=== PATIENT | female | born 1995 | race Asian ===

== ENCOUNTER 2021-03-10 23:49 | Outpatient (CLI) | payer OTHER | END 2021-03-10 23:50 | disposition critical access hospital (66) | LOC: EMS 23:49 | DX: R10.9 Unspecified abdominal pain (principal); R11.2 Nausea with vomiting, unspecified; R19.7 Diarrhea, unspecified; R42 Dizziness and giddiness; R03.1 Nonspecific low blood-pressure reading | CPT/HCPCS: A0425; A0427 ==

== ENCOUNTER 2021-03-11 00:06 | Emergency (ER) | payer OTHER ==
[2021-03-11 01:08] LABS: BASOPHILS # (AUTO) 0.1 10^3/uL (0.0-0.1); BASOPHILS % (AUTO) 0.6 %; EOSINOPHILS # (AUTO) 0.2 10^3/uL (0.0-0.7); EOSINOPHILS % (AUTO) 1.7 %; HCT - HEMATOCRIT 39.4 % (37.0-47.0); HGB - HEMOGLOBIN 12.7 g/dL (12.0-16.0); LYMPHOCYTES # (AUTO) 1.4 10^3/uL (1.5-3.5); LYMPHOCYTES % (AUTO) 11.6 %; MEAN CORPUSCULAR HEMOGLOBIN 29.3 pg (27.0-31.0); MEAN CORPUSCULAR HGB CONC 32.2 g/dL (32.0-36.0); MEAN CORPUSCULAR VOLUME 90.8 fL (81.0-99.0); MONOCYTES # (AUTO) 0.7 10^3/uL (0.0-1.0); MONOCYTES % (AUTO) 6.1 %; NEUTROPHILS # (AUTO) 9.2 10^3/uL (1.5-6.6); NEUTROPHILS % (AUTO) 79.5 %; PLT - PLATELET COUNT 263 10^3/uL (130-450); RED BLOOD COUNT 4.34 10^6/uL (4.20-5.40); RED CELL DISTRIBUTION WIDTH 13.1 % (12.0-15.0); WHITE BLOOD COUNT 11.6 x10^3/uL (4.8-10.8)
--- NOTE | 2021-03-11 01:09 | ED Physician Documentation ---
PD HPI ABD PAIN - Stated complaint Stated Complaint: ABD PX, N/V - Chief complaint Chief Complaint: Abd Pain - History obtained from History obtained from: Patient - History of Present Illness Timing - onset: Enter time (23:00) Timing - details: Gradual onset Pain level now: 6 Quality: Pain Location: All over / everywhere Radiation: Other (does not radiate) Improved by: Laying still Worsened by: Palpation Associated symptoms: Nausea, Vomiting, Diarrhea. No: Fever Similar symptoms before: Has not had sx before Recently seen: Not recently seen - Additional information Additional information: c/o diffuse abdominal pain, predominantly left lower quadrant and midline lower abdomen. rapid onset 11 PM tonight while at home at rest. Pain is associated with nausea, vomiting, and diarrhea. Denies h/o similar symptoms. Review of Systems Constitutional: denies: Fever Cardiac: reports: Reviewed and negative Respiratory: reports: Reviewed and negative GI: reports: Abdominal Pain, Nausea, Vomiting, Diarrhea. 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 : None HEENT: None Psych: Anxiety Musculoskeletal: None Derm: None - Present Medications Home Medications: Ambulatory Orders Medication Instructions Recorded Confirmed Oxycodone HCl/Acetaminophen 1 - 2 each PO Q6H PRN #14 tablet 03/11/21 [Percocet 5-325 mg Tablet] - Allergies Allergies/Adverse Reactions: Allergies Allergy/AdvReac Type Severity Reaction Status Date / Time No Known Drug Allergies Allergy Verified 03/11/21 00:12 - Social History Does the pt smoke?: No Smoking Status: Never smoker Does the pt drink ETOH?: No Does the pt have substance abuse?: No - Immunizations Immunizations are current?: Yes - POLST Patient has POLST: No PD ED PE NORMAL - Vitals Vital signs reviewed: Yes - General General: Alert and oriented X 3, Well developed/nourished, Other (appears uncomfortable, mild-moderate painful distress) - HEENT HEENT: Moist mucous membranes - Cardiac Cardiac: RRR, No murmur - Respiratory Respiratory: No respiratory distress, Clear bilaterally - Abdomen Abdomen: Soft, Non distended, Other (diffuse TTP, predominantly LLQ and suprapubic. no rebound, no guarding) - Back Back: No CVA TTP Results - Vitals Vitals: Vital Signs - 24 hr 03/11/21 03/11/21 03/11/21 02:18 03:26 03:36 Heart Rate 68 80 Respiratory 16 17 17 Rate Blood Pressure 98/56 L O2 Saturation 100 98 03/11/21 03/11/21 04:12 04:48 Heart Rate 65 Respiratory 15 16 Rate Blood Pressure 102/67 O2 Saturation 97 Oxygen O2 Source Room air - Labs Labs: Laboratory Tests 03/11/21 03/11/21 03/11/21 01:00 01:00 01:21 WBC 11.6 H RBC 4.34 Hgb 12.7 Hct 39.4 MCV 90.8 MCH 29.3 MCHC 32.2 RDW 13.1 Plt Count 263 MPV 9.0 Neut # (Auto) 9.2 H Lymph # (Auto) 1.4 L [place] # (Auto) 0.7 Eos # (Auto) 0.2 Baso # (Auto) 0.1 Absolute Nucleated RBC 0.00 Nucleated RBC % 0.0 Sodium 135 Potassium 3.7 Chloride 102 Carbon Dioxide 25 Anion Gap 8.0 BUN 17 Creatinine 1.0 Estimated GFR (MDRD) 68 L Glucose 115 H Calcium 8.3 L Total Bilirubin 0.9 AST 17 ALT 13 Alkaline Phosphatase 48 Total Protein 7.4 Albumin 4.1 Globulin 3.3 Albumin/Globulin Ratio 1.2 Lipase 27 Urine Color YELLOW Urine Clarity CLEAR Urine pH 6.0 Ur Specific Joshua 1.025 Urine Protein TRACE Urine Glucose (UA) NEGATIVE Urine Ketones 15 H Urine Occult Blood NEGATIVE Urine Nitrite NEGATIVE Urine Bilirubin NEGATIVE Urine Urobilinogen 1 (NORMAL) Ur Leukocyte Esterase TRACE H Urine RBC 0-5 Urine WBC 4-5 Ur Squamous Epith Cells MANY Squamous H Urine Bacteria Rare Urine Mucus Moderate Strands Ur Microscopic Review INDICATED Urine Culture Comments NOT INDICATED Urine HCG, Qual 03/11/21 01:21 WBC RBC Hgb Hct MCV MCH MCHC RDW Plt Count MPV Neut # (Auto) Lymph # (Auto) [place] # (Auto) Eos # (Auto) Baso # (Auto) Absolute Nucleated RBC Nucleated RBC % Sodium Potassium Chloride Carbon Dioxide Anion Gap BUN Creatinine Estimated GFR (MDRD) Glucose Calcium Total Bilirubin AST ALT Alkaline Phosphatase Total Protein Albumin Globulin Albumin/Globulin Ratio Lipase Urine Color Urine Clarity Urine pH Ur Specific Joshua Urine Protein Urine Glucose (UA) Urine Ketones Urine Occult Blood Urine Nitrite Urine Bilirubin Urine Urobilinogen Ur Leukocyte Esterase Urine RBC Urine WBC Ur Squamous Epith Cells Urine Bacteria Urine Mucus Ur Microscopic Review Urine Culture Comments Urine HCG, Qual NEGATIVE - Rads (name of study) CT A/P IV contrast Radiology: Prelim report reviewed, See rad report pelvic/TV US Radiology: Prelim report reviewed, See rad report PD MEDICAL DECISION MAKING - ED course Complexity details: reviewed results, re-evaluated patient, considered differential, d/w patient ED course: patient reports significant improvement after 1mg dilaudid IV. She is given 1 liter NS and 4mg IV zofran as well, with resolution of her n/v. she declined further analgesia for remainder of ED stay. No findings on CT A/P nor pelvic/TV US to correlate with symptoms. Incidental note made of small right ovarian cyst. results reviewed with patient, indications for need to return to ED discussed, and she is instructed to follow up with her primary care provider, next available appointment Departure - Departure Disposition: 01 Home, Self Care Clinical Impression: Ovarian cyst Qualifiers: Laterality: right Qualified Code(s): N83.201 - Unspecified ovarian cyst, right side Abdominal pain Qualifiers: Abdominal location: lower abdomen, unspecified Qualified Code(s): R10.30 - Lower abdominal pain, unspecified Condition: Good Instructions: ED Abdominal Pain Unkn Cause, ED Cyst Ovarian, ED Pelvic Pain [facility] Follow-Up: VERA FLORES MD [Primary Care Provider] - Prescriptions: Oxycodone HCl/Acetaminophen [Percocet 5-325 mg Tablet] 1 - 2 each PO Q6H PRN #14 tablet PRN Reason: pain Discharge Date/Time: 03/11/21 04:49
[2021-03-11 01:20] LABS: ALBUMIN 4.1 g/dL (3.2-5.5); ALBUMIN/GLOBULIN RATIO 1.2 (1.0-2.2); BILIRUBIN,TOTAL 0.9 mg/dL (0.2-1.0); CALCIUM 8.3 mg/dL (8.5-10.3); POTASSIUM 3.7 mmol/L (3.5-5.0); TOTAL PROTEIN 7.4 g/dL (6.7-8.2)
[2021-03-11 01:26] LABS: GLUCOSE, URINE (UA) NEGATIVE (NEGATIVE); KETONES,URINE (UA) 15 mg/dL (NEGATIVE); LEUKOCYTE ESTERASE, URINE TRACE (NEGATIVE); NITRITE,URINE NEGATIVE (NEGATIVE); OCCULT BLOOD,URINE NEGATIVE (NEGATIVE); PROTEIN,URINE TRACE mg/dL (NEGATIVE); UROBILINOGEN,URINE 1 (NORMAL) E.U./dL (NORMAL)
[2021-03-11] MEDS ORDERED: SODIUM CHLORIDE 0.9% 1,000 ML IV STA (01:28)
[2021-03-11] MEDS ORDERED: ONDANSETRON 4 MG/2 ML VIAL IVP STA (01:28)
[2021-03-11] MEDS ORDERED: HYDROmorphone 1 MG/ML CARPUJECT IVP STA (01:28)
[2021-03-11 01:32] LABS: BILIRUBIN,URINE NEGATIVE (NEGATIVE); CLARITY,URINE CLEAR (CLEAR); ICTOTEST,URINE NEGATIVE
[2021-03-11 01:35] LABS: BACTERIA,URINE Rare /HPF (None Seen); MUCUS,URINE Moderate Strands; RBC,URINE 0-5 /HPF (0-5); SQUAMOUS EPITHELIAL CELL,UR MANY Squamous (<= Few)
[2021-03-11] MEDS ORDERED: IOVERSOL 320 100 ML VIAL IVP ONE ×2 (01:35→02:22)
[2021-03-11 01:49] LABS: HCG UR QUAL NEGATIVE
[2021-03-11 04:14] VITALS: BP 102/67
--- NOTE | 2021-03-11 10:44 | Ultrasound Report ---
PROCEDURE: Pelvic w/Transvag+Doppler Comp INDICATIONS: pelvic pain, R TECHNIQUE: Real-time scanning was performed of the pelvic organs, with image documentation. Additional endovagi nal scanning was necessary due to incomplete visualization of the adnexal and endometrial structures by transabdominal scanning. COMPARISON: None. FINDINGS: No pathologic free abdominal or pelvic fluid. Uterus: Uterus is normal in size at 2.4 x 4.2 x 3.4 cm. The endometrium measures 5.1 mm in combined thickness. Intrauterine device is present and in appropriate position. Ovaries: Right ovary measures 3.2 x 2.4 x 1.8 cm, volume 7.3 cc. Complex focus of echogenicity is pr esent within the right ovary measuring 1.7 x 1.2 x 1.4 cm. The left ovary measures 2.4 x 1.6 x 1.5 cm , by 3.0 cc. There is a focus of decreased echogenicity within the left ovary measuring 1.4 x 1.5 x 1 .6 cm. Arterial and venous flow are identified within the ovaries bilaterally. IMPRESSION: 1. No evidence of torsion at time of exam. 2. Partially collapsed right hemorrhagic cyst. 3. Simple left ovarian cyst. The above findings are concordant with preliminary report. Reviewed by: Alexa Samson MD on 03/11/2021 10:43 AM PDT Approved by: Alexa Samson MD on 03/11/2021 10:43 AM PDT Station ID: [id number]
--- NOTE | 2021-03-11 11:01 | CT Report ---
PROCEDURE: Abdomen/Pelvis W INDICATIONS: Lower quadrant abdominal pain. CONTRAST: IV CONTRAST: Isovue 370 ml: 100 PO CONTRAST: *NO PO CONTRAST TECHNIQUE: After the administration of intravenous contrast, 5 mm thick sections acquired from the diaphragms to the symphysis. 5 mm thick coronal and sagittal reformats were acquired. For radiation dose reducti on, the following was used: automated exposure control, adjustment of mA and/or kV according to jemal ent size. COMPARISON: None. FINDINGS: Image quality: Excellent. ABDOMEN: Lung bases: Lung bases are clear. Heart size is normal. Solid organs: Liver and spleen are normal in size and enhancement. Gallbladder is normal. Biliary system is non dilated. Pancreas enhances normally. No adrenal nodules. Kidneys demonstrate normal size and enhancement, without hydronephrosis. Peritoneum and bowel: Stomach is distended and fluid with food debris. Appendix is normal. Bowel loo ps demonstrate normal wall thickness and caliber. Scattered colonic diverticula in transverse colon. No CT findings to suggest acute diverticulitis. No free fluid or air. Nodes and vessels: No retroperitoneal or mesenteric adenopathy by size criteria. Aorta and inferior vena cava are normal in size. Miscellaneous: No ventral hernias. PELVIS: Genitourinary: Bladder wall thickness is normal. Uterus is normal. There is an IUD. A 1.7 cm corpus sclerosis is seen in the right ovary. Ovaries are otherwise normal. No free fluid in the cul-de-sac. Miscellaneous: No inguinal hernias or adenopathy. Bones: No suspicious bony lesions. No vertebral body compression fractures. IMPRESSION: 1. No acute abnormalities identified in abdomen or pelvis. 2. A 1.7 cm corpus with cyst in the right ovary. 3. Mild diverticulosis without diverticulitis. No significant discrepancy with the preliminary interpretation. Reviewed by: Cate Lawrence MD on 03/11/2021 11:00 AM PDT Approved by: Cate Lawrence MD on 03/11/2021 11:00 AM PDT Station ID: [id number]
== END 2021-03-11 04:49 | disposition home or self-care (01) ==
LOC: ED 00:06
DX: R10.30 Lower abdominal pain, unspecified (principal); N83.201 Unspecified ovarian cyst, right side; N83.292 Other ovarian cyst, left side
CPT/HCPCS: 36415; 74177; 76830; 76856; 80053; 81001; 81025; 83690; 85025; 93975; 96374; 96375; 99284; J1170; Q9967; 81003; 87086

== ENCOUNTER 2021-09-14 16:56 | Inpatient (IN) | payer OTHER ==
[2021-09-14] MEDS ORDERED: SODIUM CHLORIDE 0.9% 1,000 ML IV STA (17:23)
--- NOTE | 2021-09-14 17:34 | ED Physician Documentation ---
History of Present Illness - Stated complaint Stated Complaint: COVID SYMPTOMS - Chief complaint Chief Complaint: Resp - Additonal information Additional information: 25-year-old female who is approximately 26 weeks with an JACKSON of December 24 presents to the emergency department for evaluation of acute onset cough, cold, congestion, fevers and mild dyspnea. Symptoms began this a.m. She reports herself being fully vaccinated for COVID-19 in December 2020. This is her first . She is attended by Dr. Stone through [facility]. Patient denies dysuria vaginal bleeding or discharge. She does endorse bilateral lower pelvic pain for much of the last week. She continues to have movement. She denies any pertinent past medical history preceding this. No tobacco or drug use. Denies any recent sick contacts or travel. She presents appearing as though she feels unwell. Significant tachycardia heart rate 130-140. Sinus. 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 : None HEENT: None Psych: Anxiety Musculoskeletal: None Derm: None - Present Medications Home Medications: Ambulatory Orders Medication Instructions Recorded Confirmed Oxycodone HCl/Acetaminophen 1 - 2 each PO Q6H PRN #14 tablet 03/11/21 [Percocet 5-325 mg Tablet] - Allergies Allergies/Adverse Reactions: Allergies Allergy/AdvReac Type Severity Reaction Status Date / Time No Known Drug Allergies Allergy Verified 09/14/21 17:21 - Social History Does the pt smoke?: No Smoking Status: Never smoker Does the pt drink ETOH?: No Does the pt have substance abuse?: No - Immunizations Immunizations are current?: Yes - POLST Patient has POLST: No PD ED PE EXPANDED - General General: Alert, No acute distress, Other (appears as though she feel sunwell) - Cardiac Cardiac: Regular Rate, Tachy, Radial strong equal, Pedal strong equal, Cap refill < 2 sec. No: Murmur Present - Respiratory Respiratory: Clear to ausultation hawa. No: Distress, Labored - Abdomen Abdomen: Normal Bowel sounds, Tender to palpation (mild lower pelvic TTP) - Back Back: Normal exam - Derm Derm: Normal color, Warm and dry. No: Rash - Extremities Extremities: Normal. No: Deformity, Tenderness - Neuro Neuro: Alert and Oriented X 3, CNII-XII intact - GCS Eye Opening: Spontaneous Motor: Obeys Commands Verbal: Oriented Total: 15 Results - Vitals Vitals: Vital Signs - 24 hr 09/14/21 09/14/21 17:15 19:08 Temperature 39.0 C H Heart Rate 135 H 119 H Respiratory 24 21 Rate Blood Pressure 117/59 L 119/80 O2 Saturation 98 97 Oxygen O2 Source Room air - Labs Labs: Laboratory Tests 09/14/21 09/14/21 09/14/21 17:30 17:37 17:37 WBC 13.6 H RBC 3.79 L Hgb 11.8 L Hct 34.3 L MCV 90.5 MCH 31.1 H MCHC 34.4 RDW 14.0 Plt Count 233 MPV 9.1 Neut # (Auto) 12.1 H Lymph # (Auto) 0.5 L [place] # (Auto) 0.8 Eos # (Auto) 0.1 Baso # (Auto) 0.0 Absolute Nucleated RBC 0.00 Nucleated RBC % 0.0 Sodium 130 L Potassium 3.1 L Chloride 97 L Carbon Dioxide 21 Anion Gap 12.0 BUN 6 Creatinine 0.8 Estimated GFR (MDRD) 88 L Glucose 92 Calcium 8.8 Total Bilirubin 0.6 AST 19 ALT 16 Alkaline Phosphatase 85 Total Protein 7.9 Albumin 3.5 Globulin 4.4 H Albumin/Globulin Ratio 0.8 L Lipase 23 Nasal Adenovirus (PCR) NOT DETECTED Nasal B. parapertussis DNA (PCR) NOT DETECTED Nasal Coronavir 229E PCR NOT DETECTED Nasal Coronavir HKU1 PCR NOT DETECTED Nasal Coronavir NL63 PCR NOT DETECTED Nasal Coronavir OC43 PCR NOT DETECTED Nasal Enterovir/Rhinovir PCR NOT DETECTED Nasal Influenza B PCR NOT DETECTED Nasal Influenza A PCR NOT DETECTED Nasal Parainfluen 1 PCR NOT DETECTED Nasal Parainfluen 2 PCR NOT DETECTED Nasal Parainfluen 3 PCR NOT DETECTED Nasal Parainfluen 4 PCR NOT DETECTED Nasal RSV (PCR) NOT DETECTED Nasal B.pertussis DNA PCR NOT DETECTED Nasal C.pneumoniae (PCR) NOT DETECTED [place]venido Human Metapneumo PCR NOT DETECTED Nasal M.pneumoniae (PCR) NOT DETECTED Nasal SARS-CoV-2 (PCR) NOT DETECTED - Rads (name of study) CXR Radiology: Final report received (Right basilar opacification which could represent atelectasis or pneumonia.) PD MEDICAL DECISION MAKING - ED course Complexity details: reviewed results, re-evaluated patient, d/w patient, d/w project management consultant (Dr. Burrows) ED course: 25-year-old female who is approximately 26 weeks with an JACKSON of December 22 presents the emergency department with acute onset cough cold congestion body aches and malaise. She is vaccinated for COVID-19. She does present as febrile with a heart rate in the 130s. Initially her Oxygen saturations were in the high 90s and she was not tachypneic but over time here in the emergency department she developed a mild tachypnea with respiratory rate in the 40s and a decrease in her sats to 90 to 92%. She was placed on 2 L nasal cannula. Subsequent chest x-ray has revealed likely an early pneumonia in the right lower lobe of the lung. Patient was started on ceftriaxone and azithromycin. Patient has been receiving NST testing here in the emergency department. Unfo rtunately the baby has had some tachycardia with heart rates in the 170s and 180s. This was discussed with our OB on-call Dr. Burrows. Given mild stress patient will be admitted to the hospital for further evaluation and treatment of her pneumonia. Reassuringly her respiratory PCR panel is negative. Pt's primary OB is Dr. Stone with [facility]. I did speak on the phone with With her colleague on-call Dr. Lakhani. He was notified that we would be admitting her to the hospital for further evaluation and management of her pneumonia as well as an abnormal stress test. Further care to be dictated by the OB team here at [facility] with Dr. Burrows as the admitting physician Departure - Departure Disposition: 66 [facility] DC/Xfer Clinical Impression: Pneumonia affecting Qualifiers: Trimester: second trimester Qualified Code(s): O99.512 - Diseases of the respiratory system complicating , second trimester
[2021-09-14 17:44] LABS: BASOPHILS % (AUTO) 0.2 %; EOSINOPHILS # (AUTO) 0.1 10^3/uL (0.0-0.7); EOSINOPHILS % (AUTO) 0.4 %; HCT - HEMATOCRIT 34.3 % (37.0-47.0); HGB - HEMOGLOBIN 11.8 g/dL (12.0-16.0); LYMPHOCYTES # (AUTO) 0.5 10^3/uL (1.5-3.5); LYMPHOCYTES % (AUTO) 3.8 %; MEAN CORPUSCULAR HEMOGLOBIN 31.1 pg (27.0-31.0); MEAN CORPUSCULAR HGB CONC 34.4 g/dL (32.0-36.0); MEAN CORPUSCULAR VOLUME 90.5 fL (81.0-99.0); MEAN PLATELET VOLUME 9.1 fL (7.9-10.8); MONOCYTES # (AUTO) 0.8 10^3/uL (0.0-1.0); MONOCYTES % (AUTO) 6.2 %; NEUTROPHILS # (AUTO) 12.1 10^3/uL (1.5-6.6); NEUTROPHILS % (AUTO) 88.7 %; PLT - PLATELET COUNT 233 10^3/uL (130-450); RED BLOOD COUNT 3.79 10^6/uL (4.20-5.40); WHITE BLOOD COUNT 13.6 x10^3/uL (4.8-10.8)
[2021-09-14 17:56] LABS: ALBUMIN 3.5 g/dL (3.2-5.5); ALBUMIN/GLOBULIN RATIO 0.8 (1.0-2.2); BILIRUBIN,TOTAL 0.6 mg/dL (0.2-1.0); CALCIUM 8.8 mg/dL (8.5-10.3); CREATININE 0.8 mg/dL (0.4-1.0); POTASSIUM 3.1 mmol/L (3.5-5.0); TOTAL PROTEIN 7.9 g/dL (6.7-8.2)
--- NOTE | 2021-09-14 18:12 | XRAY Report ---
PROCEDURE: Chest 1 View X-Ray INDICATIONS: covid symptoms TECHNIQUE: One view of the chest was acquired. COMPARISON: 01/10/2020. FINDINGS: Surgical changes and devices: None. Lungs and pleura: No pleural effusions or pneumothorax. Increased desiccation noted in the right uriah g base. Mediastinum: Mediastinal contours appear normal. Heart size is normal. Bones and chest wall: Convex right thoracic spine scoliosis. No suspicious bony lesions. Overlying soft tissues appear unremarkable. IMPRESSION: Right basilar opacification which could represent atelectasis or pneumonia. Reviewed by: Inocencia Cevallos MD, PhD on 09/14/2021 6:11 PM PST Approved by: Inocencia Cevallos MD, PhD on 09/14/2021 6:11 PM PST Station ID: [id number]
[2021-09-14] MEDS ORDERED: ACETAMINOPHEN 325 MG TABLET PO STA (18:21)
[2021-09-14 18:36] LABS: B. PARAPERTUSSIS- RESP PCR PAN NOT DETECTED; B. PERTUSSIS- RESP PCR PANEL NOT DETECTED; C. PNEUMONIAE- RESP PCR PANEL NOT DETECTED; CORONAVIRUS 229E-RESP PCR NOT DETECTED; CORONAVIRUS HKU1-RESP PCR NOT DETECTED; CORONAVIRUS NL63-RESP PCR NOT DETECTED; CORONAVIRUS OC43-RESP PCR NOT DETECTED; HUMAN METAPNEUMOVIRUS NOT DETECTED; INFLUENZA A- RESP PCR PANEL NOT DETECTED; INFLUENZA B - RESP PCR PANEL NOT DETECTED; M. PNEUMONIAE- RESP PCR PANEL NOT DETECTED; PARAINFLUENZA VIRUS 1 NOT DETECTED; PARAINFLUENZA VIRUS 2 NOT DETECTED; PARAINFLUENZA VIRUS 3 NOT DETECTED; PARAINFLUENZA VIRUS 4 NOT DETECTED; RHINOVIRUS/ENTEROVIRUS NOT DETECTED; RSV- RESP PCR PANEL NOT DETECTED; SARS-CoV-2 -RESP PCR PANEL NOT DETECTED
--- NOTE | 2021-09-14 18:40 | PROVIDER PROGRESS NOTE ---
- HPI Chief Complaint: Other (Fever, Cough, Body Aches) Current : Vital Signs Temperature 102.2 F H 09/14/21 17:15 Heart Rate 135 H 09/14/21 17:15 Respiratory Rate 24 09/14/21 17:15 Blood Pressure 117/59 L 09/14/21 17:15 O2 Saturation 98 09/14/21 17:15 Patient is a 25-year-old G1 at 26 weeks gestation presenting for body aches, cough, and fever. She is seen by Dr. Stone in [place]. She said yesterday she began slightly unwell with mild body aches but did not very well. This morning she awoke felt worse and gradually progressed to fever, body aches, cough, and some shortness of breath. There is no one else sick at home. She has not found relief from this. She has good movement, no leaking, no vaginal bleeding. She denies headache, right upper quadrant pain, changes in vision. Past medical history Denies pertinent history Past surgical history No prior surgery Family history Father: Hypertension Social history Denies tobacco, alcohol, drugs Medications: Sertraline daily - Exam Physical Constitutional: alert, well hydrated, well developed, well nourished, appropriate dress. Skin: normal turgor, normal color. Head: atraumatic, normocephalic. Cardiovascular: RRR, no murmurs nor gallops. Respiratory: no respiratory distress. Clear to auscultation bilaterally. Cough intermittently. No increased work of breathing. Abdomen: Mild diffuse tenderness to soft palpation. No suprapubic tenderness. Back: No CVA tenderness. Some mild palpation to light pressure in paraspinal muscles. Spine: normal mobility. Neurologic: normal, sensation intact, motor intact. Psych: affect and mood appropriate, normal interaction, good eye contact. Laboratory Last Values WBC 13.6 x10^3/uL (4.8-10.8) H 09/14/21 17:37 RBC 3.79 10^6/uL (4.20-5.40) L 09/14/21 17:37 Hgb 11.8 g/dL (12.0-16.0) L 09/14/21 17:37 Hct 34.3 % (37.0-47.0) L 09/14/21 17:37 MCV 90.5 fL (81.0-99.0) 09/14/21 17:37 MCH 31.1 pg (27.0-31.0) H 09/14/21 17:37 MCHC 34.4 g/dL (32.0-36.0) 09/14/21 17:37 RDW 14.0 % (12.0-15.0) 09/14/21 17:37 Plt Count 233 10^3/uL (130-450) 09/14/21 17:37 MPV 9.1 fL (7.9-10.8) 09/14/21 17:37 Neut # (Auto) 12.1 10^3/uL (1.5-6.6) H 09/14/21 17:37 Lymph # (Auto) 0.5 10^3/uL (1.5-3.5) L 09/14/21 17:37 [place] # (Auto) 0.8 10^3/uL (0.0-1.0) 09/14/21 17:37 Eos # (Auto) 0.1 10^3/uL (0.0-0.7) 09/14/21 17:37 Baso # (Auto) 0.0 10^3/uL (0.0-0.1) 09/14/21 17:37 Absolute Nucleated RBC 0.00 x10^3/uL 09/14/21 17:37 Nucleated RBC % 0.0 /100WBC 09/14/21 17:37 Sodium 130 mmol/L (135-145) L 09/14/21 17:37 Potassium 3.1 mmol/L (3.5-5.0) L 09/14/21 17:37 Chloride 97 mmol/L (101-111) L 09/14/21 17:37 Carbon Dioxide 21 mmol/L (21-32) 09/14/21 17:37 Anion Gap 12.0 (6-13) 09/14/21 17:37 BUN 6 mg/dL (6-20) 09/14/21 17:37 Creatinine 0.8 mg/dL (0.4-1.0) 09/14/21 17:37 Estimated GFR (MDRD) 88 (>89) L 09/14/21 17:37 Glucose 92 mg/dL (70-100) 09/14/21 17:37 Calcium 8.8 mg/dL (8.5-10.3) 09/14/21 17:37 Total Bilirubin 0.6 mg/dL (0.2-1.0) 09/14/21 17:37 AST 19 IU/L (10-42) 09/14/21 17:37 ALT 16 IU/L (10-60) 09/14/21 17:37 Alkaline Phosphatase 85 IU/L (42-121) 09/14/21 17:37 Total Protein 7.9 g/dL (6.7-8.2) 09/14/21 17:37 Albumin 3.5 g/dL (3.2-5.5) 09/14/21 17:37 Globulin 4.4 g/dL (2.1-4.2) H 09/14/21 17:37 Albumin/Globulin Ratio 0.8 (1.0-2.2) L 09/14/21 17:37 Lipase 23 U/L (22-51) 09/14/21 17:37 Chest x-ray: Impression: Right basilar opacification which could represent atelectasis or pneumonia - Procedures OB Procedure Performed: NST Diagnosis/Indication for NST: Other (Fever) - Plan Plan: Assessment and plan: 25-year-old G1, P0 at 26 weeks gestation with viral URI 1. Viral URI -Vaccinated against COVID-19 -Symptomatic treatment at this time. No hypoxia despite being on room air. Continue oral hydration and Tylenol p.o. for fever control. Should return if unable to keep fever controlled. -She appears to have an infection, although has not ill enough to warrant admission. 2. Round ligament pain -Patient description of bilateral inguinal pain and given the , this will coincides with my movement pain. She is additionally having some body myalgias which are likely exacerbating the problem. 3. 26 weeks gestation -Reactive NST, mild tachycardia, resolved with resolution of fever. -Follow-up with Dr. Stone for care
[2021-09-14] MEDS ORDERED: cefTRIAXone 1 GM VIAL IVP STA (20:20)
[2021-09-14] MEDS ORDERED: AZITHROMYCIN INJ 500 MG in SODIUM CHLORIDE 0.9% 250 ML IV STA (20:20)
--- NOTE | 2021-09-14 20:26 | HISTORY & PHYSICAL EXAMINATION ---
Admit History - Visit Reason Visit Reason: Other (Pneumonia) - : 1 Parity: 0 Care: positive: Other ([facility]) Risk/History: positive: None Complications This : positive: None Smoking Status: Never smoker - Other Maternal History Other Maternal History: Patient is a 25-year-old G1 at 26 weeks gestation presenting for body aches, cough, and fever. She receives care from Dr. Stone in [place]. She said yesterday she began to feel slightly unwell with mild body aches. This morning she when she awoke, she felt worse and gradually progressed to fever, body aches, cough, and some shortness of breath. There is no one else sick at home. She has not found relief from this. She has had bilateral low abdominal pin in the injuinal distrobution that seems worse than her other aches. She has good movement, no leaking, no vaginal bleeding. She denies headache, right upper quadrant pain, changes in vision. Past medical history Denies pertinent history Past surgical history No prior surgery Family history Father: Hypertension Social history Denies tobacco, alcohol, drugs Medications: Sertraline daily - Exam Physical Constitutional: alert, well hydrated, well developed, well nourished, appropriate dress. Skin: normal turgor, normal color. Head: atraumatic, normocephalic. Cardiovascular: RRR, no murmurs nor gallops. Respiratory: no respiratory distress. Clear to auscultation bilaterally. Cough intermittently. No increased work of breathing. Abdomen: Mild diffuse tenderness to soft palpation. No suprapubic tenderness. Back: No CVA tenderness. Some mild palpation to light pressure in paraspinal muscles. Spine: normal mobility. Neurologic: normal, sensation intact, motor intact. Psych: affect and mood appropriate, normal interaction, good eye contact. Laboratory Last Values WBC 13.6 x10^3/uL (4.8-10.8) H 09/14/21 17:37 RBC 3.79 10^6/uL (4.20-5.40) L 09/14/21 17:37 Hgb 11.8 g/dL (12.0-16.0) L 09/14/21 17:37 Hct 34.3 % (37.0-47.0) L 09/14/21 17:37 MCV 90.5 fL (81.0-99.0) 09/14/21 17:37 MCH 31.1 pg (27.0-31.0) H 09/14/21 17:37 MCHC 34.4 g/dL (32.0-36.0) 09/14/21 17:37 RDW 14.0 % (12.0-15.0) 09/14/21 17:37 Plt Count 233 10^3/uL (130-450) 09/14/21 17:37 MPV 9.1 fL (7.9-10.8) 09/14/21 17:37 Neut # (Auto) 12.1 10^3/uL (1.5-6.6) H 09/14/21 17:37 Lymph # (Auto) 0.5 10^3/uL (1.5-3.5) L 09/14/21 17:37 [place] # (Auto) 0.8 10^3/uL (0.0-1.0) 09/14/21 17:37 Eos # (Auto) 0.1 10^3/uL (0.0-0.7) 09/14/21 17:37 Baso # (Auto) 0.0 10^3/uL (0.0-0.1) 09/14/21 17:37 Absolute Nucleated RBC 0.00 x10^3/uL 09/14/21 17:37 Nucleated RBC % 0.0 /100WBC 09/14/21 17:37 Sodium 130 mmol/L (135-145) L 09/14/21 17:37 Potassium 3.1 mmol/L (3.5-5.0) L 09/14/21 17:37 Chloride 97 mmol/L (101-111) L 09/14/21 17:37 Carbon Dioxide 21 mmol/L (21-32) 09/14/21 17:37 Anion Gap 12.0 (6-13) 09/14/21 17:37 BUN 6 mg/dL (6-20) 09/14/21 17:37 Creatinine 0.8 mg/dL (0.4-1.0) 09/14/21 17:37 Estimated GFR (MDRD) 88 (>89) L 09/14/21 17:37 Glucose 92 mg/dL (70-100) 09/14/21 17:37 Calcium 8.8 mg/dL (8.5-10.3) 09/14/21 17:37 Total Bilirubin 0.6 mg/dL (0.2-1.0) 09/14/21 17:37 AST 19 IU/L (10-42) 09/14/21 17:37 ALT 16 IU/L (10-60) 09/14/21 17:37 Alkaline Phosphatase 85 IU/L (42-121) 09/14/21 17:37 Total Protein 7.9 g/dL (6.7-8.2) 09/14/21 17:37 Albumin 3.5 g/dL (3.2-5.5) 09/14/21 17:37 Globulin 4.4 g/dL (2.1-4.2) H 09/14/21 17:37 Albumin/Globulin Ratio 0.8 (1.0-2.2) L 09/14/21 17:37 Lipase 23 U/L (22-51) 09/14/21 17:37 Chest x-ray: Impression: Right basilar opacification which could represent atelectasis or pneumonia - Procedures OB Procedure Performed: NST Diagnosis/Indication for NST: Other (Fever) - Plan Plan: Assessment and plan: 25-year-old G1, P0 at 26 weeks gestation with viral URI 1. Right lower lobe pneumonia -Vaccinated against COVID-19, Viral respiratory panel negative. -Initially did well but became hypoxic and now on 2 liters oxygen. Continue oral hydration and Tylenol p.o. for fever control. Received one liter bolus in ED. -Oxygen saturation goal of 95% or greater. -Ceftriaxone and azithromycin for pneumonia with plan to switch to augmentin when suitible for outpatient management. 2. Round ligament pain -Patient description of bilateral inguinal pain and given the , this will coincides with my movement pain. She is additionally having some body myalgias which are likely exacerbating the problem. 3. 26 weeks gestation -Reactive NST, mild tachycardia, resolving with resolution of fever. Anticipate less than 2 midnights admission. Meds/Allgy - Home Medications Home Medications: Ambulatory Orders Medication Instructions Recorded Confirmed Oxycodone HCl/Acetaminophen 1 - 2 each PO Q6H PRN #14 tablet 03/11/21 [Percocet 5-325 mg Tablet] - Allergies Allergies/Adverse Reactions: Allergies Allergy/AdvReac Type Severity Reaction Status Date / Time No Known Drug Allergies Allergy Verified 09/14/21 17:21 Physical - Abdominal Exam Vital Signs: Temp Pulse Resp BP Pulse Ox 102.2 F H 119 H 21 119/80 97 09/14/21 17:15 09/14/21 19:08 09/14/21 19:08 09/14/21 19:08 09/14/21 19:08
[2021-09-14] MEDS ORDERED: LACTATED RINGERS 1,000 ML IV STA (20:30)
[2021-09-14] MEDS ORDERED: POTASSIUM CHLORIDE 20 MEQ TABLET PO STA (20:31)
[2021-09-14] MEDS ORDERED: LACTATED RINGERS 500 ML IV SCH (21:00)
[2021-09-14] MEDS ORDERED: ONDANSETRON 4 MG/2 ML VIAL IVP PRN (21:26)
[2021-09-14] MEDS ORDERED: CALCIUM CARBONATE CHEW 500 MG TABLET PO PRN (21:28)
[2021-09-14] MEDS ORDERED: SODIUM CHLORIDE FLUSH 0.9% 10 ML SYRINGE IVP SCH (22:00)
[2021-09-14 23:04] LABS: BILIRUBIN,URINE NEGATIVE (NEGATIVE); GLUCOSE, URINE (UA) NEGATIVE (NEGATIVE); KETONES,URINE (UA) 40 mg/dL (NEGATIVE); LEUKOCYTE ESTERASE, URINE MODERATE (NEGATIVE); NITRITE,URINE NEGATIVE (NEGATIVE); OCCULT BLOOD,URINE NEGATIVE (NEGATIVE); PH,URINE 6.5 PH (5.0-7.5); PROTEIN,URINE NEGATIVE (NEGATIVE); UROBILINOGEN,URINE 0.2 (NORMAL) E.U./dL (NORMAL)
[2021-09-14 23:18] LABS: BACTERIA,URINE Moderate /HPF (None Seen); CLARITY,URINE HAZY (CLEAR); RBC,URINE 0-5 /HPF (0-5); SQUAMOUS EPITHELIAL CELL,UR MOD Squamous (<= Few)
[2021-09-15] MEDS: ACETAMINOPHEN 325 MG TABLET PO PRN ×4 (06:59→19:15)
[2021-09-15 07:45] LABS: BASOPHILS # (AUTO) 0.1 10^3/uL (0.0-0.1); BASOPHILS % (AUTO) 0.4 %; EOSINOPHILS # (AUTO) 0.1 10^3/uL (0.0-0.7); EOSINOPHILS % (AUTO) 0.4 %; HCT - HEMATOCRIT 29.2 % (37.0-47.0); HGB - HEMOGLOBIN 9.8 g/dL (12.0-16.0); LYMPHOCYTES # (AUTO) 0.8 10^3/uL (1.5-3.5); LYMPHOCYTES % (AUTO) 6.6 %; MEAN CORPUSCULAR HEMOGLOBIN 30.3 pg (27.0-31.0); MEAN CORPUSCULAR HGB CONC 33.6 g/dL (32.0-36.0); MEAN CORPUSCULAR VOLUME 90.4 fL (81.0-99.0); MEAN PLATELET VOLUME 9.3 fL (7.9-10.8); MONOCYTES # (AUTO) 1.1 10^3/uL (0.0-1.0); MONOCYTES % (AUTO) 9.1 %; NEUTROPHILS % (AUTO) 82.7 %; PLT - PLATELET COUNT 206 10^3/uL (130-450); RED BLOOD COUNT 3.23 10^6/uL (4.20-5.40); RED CELL DISTRIBUTION WIDTH 14.3 % (12.0-15.0)
[2021-09-15] MEDS ORDERED: cefTRIAXone 1 GM in SODIUM CHLORIDE 0.9% MINIBAG 100 ML IV SCH (09:00)
[2021-09-15] MEDS ORDERED: AZITHROMYCIN INJ 500 MG in SODIUM CHLORIDE 0.9% 250 ML IV SCH (09:00)
--- NOTE | 2021-09-15 11:24 | PROVIDER PROGRESS NOTE ---
Subjective - Prog Note Date Prog Note Date: 09/15/21 Prog Note Time: 11:00 - Subjective Pt reports feeling: Improved Subjective: Patient is feeling better today. Oxygen helped overnight. Still feeling myalgias, although lessened. No subjective fever or chills. Exam: Constitutional: alert, no acute distress, well hydrated, well developed, well nourished, appropriate dress. Skin: normal turgor, normal color. Head: atraumatic, normocephalic. Cardiovascular: RRR. Respiratory: no respiratory distress, decreased lung sounds in bilateral lower lobes. 1 L O2. Abdomen: nondistended,mild tenderness, although less than yesterday. Spine: normal mobility. Neurologic: normal, sensation intact, motor intact. Psych: affect and mood appropriate, normal interaction, good eye contact. NST: 150 beats per baseline, moderate variability, accelerations present, no decelerations. [place]: Quiescent Laboratory Last Values Laboratory Last Values WBC 12.0 x10^3/uL (4.8-10.8) H 09/15/21 07:20 RBC 3.23 10^6/uL (4.20-5.40) L 09/15/21 07:20 Hgb 9.8 g/dL (12.0-16.0) L 09/15/21 07:20 Hct 29.2 % (37.0-47.0) L 09/15/21 07:20 MCV 90.4 fL (81.0-99.0) 09/15/21 07:20 MCH 30.3 pg (27.0-31.0) 09/15/21 07:20 MCHC 33.6 g/dL (32.0-36.0) 09/15/21 07:20 RDW 14.3 % (12.0-15.0) 09/15/21 07:20 Plt Count 206 10^3/uL (130-450) 09/15/21 07:20 MPV 9.3 fL (7.9-10.8) 09/15/21 07:20 Neut # (Auto) 10.0 10^3/uL (1.5-6.6) H 09/15/21 07:20 Lymph # (Auto) 0.8 10^3/uL (1.5-3.5) L 09/15/21 07:20 [place] # (Auto) 1.1 10^3/uL (0.0-1.0) H 09/15/21 07:20 Eos # (Auto) 0.1 10^3/uL (0.0-0.7) 09/15/21 07:20 Baso # (Auto) 0.1 10^3/uL (0.0-0.1) 09/15/21 07:20 Absolute Nucleated RBC 0.00 x10^3/uL 09/15/21 07:20 Nucleated RBC % 0.0 /100WBC 09/15/21 07:20 Sodium 130 mmol/L (135-145) L 09/14/21 17:37 Potassium 3.1 mmol/L (3.5-5.0) L 09/14/21 17:37 Chloride 97 mmol/L (101-111) L 09/14/21 17:37 Carbon Dioxide 21 mmol/L (21-32) 09/14/21 17:37 Anion Gap 12.0 (6-13) 09/14/21 17:37 BUN 6 mg/dL (6-20) 09/14/21 17:37 Creatinine 0.8 mg/dL (0.4-1.0) 09/14/21 17:37 Estimated GFR (MDRD) 88 (>89) L 09/14/21 17:37 Glucose 92 mg/dL (70-100) 09/14/21 17:37 Calcium 8.8 mg/dL (8.5-10.3) 09/14/21 17:37 Total Bilirubin 0.6 mg/dL (0.2-1.0) 09/14/21 17:37 AST 19 IU/L (10-42) 09/14/21 17:37 ALT 16 IU/L (10-60) 09/14/21 17:37 Alkaline Phosphatase 85 IU/L (42-121) 09/14/21 17:37 Total Protein 7.9 g/dL (6.7-8.2) 09/14/21 17:37 Albumin 3.5 g/dL (3.2-5.5) 09/14/21 17:37 Globulin 4.4 g/dL (2.1-4.2) H 09/14/21 17:37 Albumin/Globulin Ratio 0.8 (1.0-2.2) L 09/14/21 17:37 Lipase 23 U/L (22-51) 09/14/21 17:37 Urine Color YELLOW 09/14/21 21:00 Urine Clarity HAZY (CLEAR) 09/14/21 21:00 Urine pH 6.5 PH (5.0-7.5) 09/14/21 21:00 Ur Specific [place] 1.010 (1.002-1.030) 09/14/21 21:00 Urine Protein NEGATIVE mg/dL (NEGATIVE) 09/14/21 21:00 Urine Glucose (UA) NEGATIVE mg/dL (NEGATIVE) 09/14/21 21:00 Urine Ketones 40 mg/dL (NEGATIVE) H 09/14/21 21:00 Urine Occult Blood NEGATIVE (NEGATIVE) 09/14/21 21:00 Urine Nitrite NEGATIVE (NEGATIVE) 09/14/21 21:00 Urine Bilirubin NEGATIVE (NEGATIVE) 09/14/21 21:00 Urine Urobilinogen 0.2 (NORMAL) E.U./dL (NORMAL) 09/14/21 21:00 Ur Leukocyte Esterase MODERATE (NEGATIVE) H 09/14/21 21:00 Urine RBC 0-5 /HPF (0-5) 09/14/21 21:00 Urine WBC 6-10 /HPF (0-5) H 09/14/21 21:00 Ur Squamous Epith Cells MOD Squamous (<= Few) H 09/14/21 21:00 Urine Bacteria Moderate /HPF (None Seen) H 09/14/21 21:00 Nasal Adenovirus (PCR) NOT DETECTED 09/14/21 17:30 Nasal B. parapertussis DNA (PCR) NOT DETECTED 09/14/21 17:30 Nasal Coronavir 229E PCR NOT DETECTED 09/14/21 17:30 Nasal Coronavir HKU1 PCR NOT DETECTED 09/14/21 17:30 Nasal Coronavir NL63 PCR NOT DETECTED 09/14/21 17:30 Nasal Coronavir OC43 PCR NOT DETECTED 09/14/21 17:30 Nasal Enterovir/Rhinovir PCR NOT DETECTED 09/14/21 17:30 Nasal Influenza B PCR NOT DETECTED 09/14/21 17:30 Nasal Influenza A PCR NOT DETECTED 09/14/21 17:30 Nasal Parainfluen 1 PCR NOT DETECTED 09/14/21 17:30 Nasal Parainfluen 2 PCR NOT DETECTED 09/14/21 17:30 Nasal Parainfluen 3 PCR NOT DETECTED 09/14/21 17:30 Nasal Parainfluen 4 PCR NOT DETECTED 09/14/21 17:30 Nasal RSV (PCR) NOT DETECTED 09/14/21 17:30 Nasal B.pertussis DNA PCR NOT DETECTED 09/14/21 17:30 Nasal C.pneumoniae (PCR) NOT DETECTED 09/14/21 17:30 [place] Human Metapneumo PCR NOT DETECTED 09/14/21 17:30 Nasal M.pneumoniae (PCR) NOT DETECTED 09/14/21 17:30 Nasal SARS-CoV-2 (PCR) NOT DETECTED 09/14/21 17:30 Assessment and Plan: 25-year-old G1 at 26 weeks gesatation with right lower lobe pneumonia 1. Right lower lobe pneumonia - Continue daily ceftriaxone and azythromycin -No fevers since last night -Maintain oxygen saturations to greater than 95%, social walking. Will try to wean off 1 L today. -Plan to switch to oral antibiotics if patient continues to improve, weaned off oxygen, and remains afebrile. -Encouraged Incentive spirometer use 2. 26 weeks gestation -NST every shift. Will increase to continuous if patient becomes febrile. Objective - Vital Signs/Intake & Output Vital Signs: Vital Signs x48h Temp Pulse Resp BP Pulse Ox 09/15/21 09:26 87 22 97/55 L 100 09/15/21 07:46 98.8 F 100 24 89/50 L 100 09/15/21 07:12 100.0 F 106 H 24 95/56 L 100 09/15/21 04:49 99.0 F 09/15/21 04:00 98.6 F 100 30 H 106/63 100 Intake & Output: Intake & Output 09/12/21 09/13/21 09/14/21 09/15/21 23:59 23:59 23:59 23:59 Intake Total 1000 1100 Balance 1000 1100 - Lab Results Fish Bones: 09/15/21 07:20 09/14/21 17:37 Other Labs: Lab Results x24hrs 09/15/21 09/14/21 09/14/21 Range/Units 07:20 21:00 17:37 WBC 12.0 H (4.8-10.8) x10^3/uL RBC 3.23 L (4.20-5.40) 10^6/uL Hgb 9.8 L (12.0-16.0) g/dL Hct 29.2 L (37.0-47.0) % MCV 90.4 (81.0-99.0) fL MCH 30.3 (27.0-31.0) pg MCHC 33.6 (32.0-36.0) g/dL RDW 14.3 (12.0-15.0) % Plt Count 206 (130-450) 10^3/uL MPV 9.3 (7.9-10.8) fL Neut # (Auto) 10.0 H (1.5-6.6) 10^3/uL Lymph # (Auto) 0.8 L (1.5-3.5) 10^3/uL [place] # (Auto) 1.1 H (0.0-1.0) 10^3/uL Eos # (Auto) 0.1 (0.0-0.7) 10^3/uL Baso # (Auto) 0.1 (0.0-0.1) 10^3/uL Absolute Nucleated RBC 0.00 x10^3/uL Nucleated RBC % 0.0 /100WBC Sodium 130 L (135-145) mmol/L Potassium 3.1 L (3.5-5.0) mmol/L Chloride 97 L (101-111) mmol/L Carbon Dioxide 21 (21-32) mmol/L Anion Gap 12.0 (6-13) BUN 6 (6-20) mg/dL Creatinine 0.8 (0.4-1.0) mg/dL Estimated GFR (MDRD) 88 L (>89) Glucose 92 (70-100) mg/dL Calcium 8.8 (8.5-10.3) mg/dL Total Bilirubin 0.6 (0.2-1.0) mg/dL AST 19 (10-42) IU/L ALT 16 (10-60) IU/L Alkaline Phosphatase 85 (42-121) IU/L Total Protein 7.9 (6.7-8.2) g/dL Albumin 3.5 (3.2-5.5) g/dL Globulin 4.4 H (2.1-4.2) g/dL Albumin/Globulin Ratio 0.8 L (1.0-2.2) Lipase 23 (22-51) U/L Urine Color YELLOW Urine Clarity HAZY (CLEAR) Urine pH 6.5 (5.0-7.5) PH Ur Specific [place] 1.010 (1.002-1.030) Urine Protein NEGATIVE (NEGATIVE) mg/dL Urine Glucose (UA) NEGATIVE (NEGATIVE) mg/dL Urine Ketones 40 H (NEGATIVE) mg/dL Urine Occult Blood NEGATIVE (NEGATIVE) Urine Nitrite NEGATIVE (NEGATIVE) Urine Bilirubin NEGATIVE (NEGATIVE) Urine Urobilinogen 0.2 (NORMAL) (NORMAL) E.U./dL Ur Leukocyte Esterase MODERATE H (NEGATIVE) Urine RBC 0-5 (0-5) /HPF Urine WBC 6-10 H (0-5) /HPF Ur Squamous Epith Cells MOD Squamous H (<= Few) Urine Bacteria Moderate H (None Seen) /HPF Nasal Adenovirus (PCR) Nasal B. parapertussis DNA (PCR) Nasal Coronavir 229E PCR Nasal Coronavir HKU1 PCR Nasal Coronavir NL63 PCR Nasal Coronavir OC43 PCR Nasal Enterovir/Rhinovir PCR Nasal Influenza B PCR Nasal Influenza A PCR Nasal Parainfluen 1 PCR Nasal Parainfluen 2 PCR Nasal Parainfluen 3 PCR Nasal Parainfluen 4 PCR Nasal RSV (PCR) Nasal B.pertussis DNA PCR Nasal C.pneumoniae (PCR) [place] Human Metapneumo PCR Nasal M.pneumoniae (PCR) Nasal SARS-CoV-2 (PCR) 09/14/21 09/14/21 Range/Units 17:37 17:30 WBC 13.6 H (4.8-10.8) x10^3/uL RBC 3.79 L (4.20-5.40) 10^6/uL Hgb 11.8 L (12.0-16.0) g/dL Hct 34.3 L (37.0-47.0) % MCV 90.5 (81.0-99.0) fL MCH 31.1 H (27.0-31.0) pg MCHC 34.4 (32.0-36.0) g/dL RDW 14.0 (12.0-15.0) % Plt Count 233 (130-450) 10^3/uL MPV 9.1 (7.9-10.8) fL Neut # (Auto) 12.1 H (1.5-6.6) 10^3/uL Lymph # (Auto) 0.5 L (1.5-3.5) 10^3/uL [place] # (Auto) 0.8 (0.0-1.0) 10^3/uL Eos # (Auto) 0.1 (0.0-0.7) 10^3/uL Baso # (Auto) 0.0 (0.0-0.1) 10^3/uL Absolute Nucleated RBC 0.00 x10^3/uL Nucleated RBC % 0.0 /100WBC Sodium (135-145) mmol/L Potassium (3.5-5.0) mmol/L Chloride (101-111) mmol/L Carbon Dioxide (21-32) mmol/L Anion Gap (6-13) BUN (6-20) mg/dL Creatinine (0.4-1.0) mg/dL Estimated GFR (MDRD) (>89) Glucose (70-100) mg/dL Calcium (8.5-10.3) mg/dL Total Bilirubin (0.2-1.0) mg/dL AST (10-42) IU/L ALT (10-60) IU/L Alkaline Phosphatase (42-121) IU/L Total Protein (6.7-8.2) g/dL Albumin (3.2-5.5) g/dL Globulin (2.1-4.2) g/dL Albumin/Globulin Ratio (1.0-2.2) Lipase (22-51) U/L Urine Color Urine Clarity (CLEAR) Urine pH (5.0-7.5) PH Ur Specific [place] (1.002-1.030) Urine Protein (NEGATIVE) mg/dL Urine Glucose (UA) (NEGATIVE) mg/dL Urine Ketones (NEGATIVE) mg/dL Urine Occult Blood (NEGATIVE) Urine Nitrite (NEGATIVE) Urine Bilirubin (NEGATIVE) Urine Urobilinogen (NORMAL) E.U./dL Ur Leukocyte Esterase (NEGATIVE) Urine RBC (0-5) /HPF Urine WBC (0-5) /HPF Ur Squamous Epith Cells (<= Few) Urine Bacteria (None Seen) /HPF Nasal Adenovirus (PCR) NOT DETECTED Nasal B. parapertussis DNA (PCR) NOT DETECTED Nasal Coronavir 229E PCR NOT DETECTED Nasal Coronavir HKU1 PCR NOT DETECTED Nasal Coronavir NL63 PCR NOT DETECTED Nasal Coronavir OC43 PCR NOT DETECTED Nasal Enterovir/Rhinovir PCR NOT DETECTED Nasal Influenza B PCR NOT DETECTED Nasal Influenza A PCR NOT DETECTED Nasal Parainfluen 1 PCR NOT DETECTED Nasal Parainfluen 2 PCR NOT DETECTED Nasal Parainfluen 3 PCR NOT DETECTED Nasal Parainfluen 4 PCR NOT DETECTED Nasal RSV (PCR) NOT DETECTED Nasal B.pertussis DNA PCR NOT DETECTED Nasal C.pneumoniae (PCR) NOT DETECTED [place] Human Metapneumo PCR NOT DETECTED Nasal M.pneumoniae (PCR) NOT DETECTED Nasal SARS-CoV-2 (PCR) NOT DETECTED
[2021-09-15] MEDS ORDERED: LACTATED RINGERS 1,000 ML IV SCH (13:00)
[2021-09-16] MEDS: ACETAMINOPHEN 325 MG TABLET PO PRN (00:14)
[2021-09-16] MEDS ORDERED: AMOX/CLAV 875 MG/125 MG TABLET PO SCH (08:00)
[2021-09-16 08:34] VITALS: BP 103/56
--- NOTE | 2021-09-16 08:52 | Discharge Plan ---
Discharge Plan Problem Reviewed?: Yes Disposition: Home, Self Care Condition: Good Prescriptions: Amox/Clav 875/125 [Augmentin 875/125 Tab] 1 tablet PO Q8H 5 Days #10 tablet Azithromycin 250 mg PO DAILY 5 Days #5 tablet Diet: Regular Activity Restrictions: Normal limits Shower Restrictions: No Driving Restrictions: No Instruction Topics: Pneumonia No Smoking: If you smoke, Please STOP! Call for help. Follow-up with: VERA FLORES MD [Primary Care Provider] - Jaqueline Stone MD [Physician No Access] -
--- NOTE | 2021-09-16 08:55 | DISCHARGE SUMMARY ---
Discharge Summary Admit Date: 09/14/21 Discharge Date: 09/16/21 Discharging Provider: Aron Burrows MD Condition at Discharge: Good Discharge Disposition: 01 Home, Self Care - DIAGNOSES Admission Diagnoses: Right lower lobe pneumonia Acute hypoxia 26 weeks gestation Discharge Diagnoses with Status of Each Condition: Right lower lobe pneumonia: Improved. We will continue outpatient management Acute hypoxia: Resolved 26 weeks gestation: stable - HPI History of Present Illness: Patient had mild fever overnight, but happened shortly after subsequent dose of acetaminophen. After 30 minutes, medication began to work and fever subsided. No hypoxic events overnight. Physical exam: General: Acute, oriented, no acute distress Pulmonary: Lung sounds mildly decreased in the left lower lobe. Right lower lobe much improved. Upper lobes clear to auscultation Abdomen: Minimally tender, worse on left side Extremities: No cords or pain. 2+ pulses bilaterally - HOSPITAL COURSE Hospital Course: Patient is a 25-year-old G1, P0 at 26 weeks gestation who presented for shortness of breath. During her ER stay, she had an event of hypoxia and was started on supplemental oxygen. Over the course of 2 days she was weaned off oxygen and was able to ambulate around her room without desaturations. She was started on IV antibiotics empirically starting with ceftriaxone and azithromycin. This morning she was switched to oral antibiotics for outpatient management. She will continue this for 5 days as an outpatient. She had intermittent fevers while hospitalized, but these were controlled easily with Tylenol. Should continue to manage fevers with acetaminophen after discharge. Plan to follow up with her OB provider next week or sooner with worsening symptoms. - ALLERGIES Allergies/Adverse Reactions: Allergies Allergy/AdvReac Type Severity Reaction Status Date / Time shellfish derived Allergy Severe Hives Verified 09/15/21 09:33 avocado Allergy Intermediate Cramps Verified 09/15/21 09:33 banana Allergy Intermediate Cramps Verified 09/15/21 09:33 lactose Allergy Cramps Verified 09/15/21 09:33 - MEDICATIONS Home Medications: Ambulatory Orders Medication Instructions Recorded Confirmed Sertraline HCl 100 mg PO DAILY 09/15/21 09/15/21 Acetaminophen [Tylenol] 650 mg PO Q4H PRN #90 tablet 09/16/21 Amox/Clav 875/125 [Augmentin 1 tablet PO Q8H 5 Days #10 tablet 09/16/21 875/125 Tab] Azithromycin 250 mg PO DAILY 5 Days #5 tablet 09/16/21 - LABS Result Diagrams: 09/15/21 07:20 09/14/21 17:37 - FOLLOW UP Follow Up: Dr. Stone with [facility] in one week. - TIME SPENT Time Spent in Discharge (Minutes): 30
[2021-09-16] MEDS ORDERED: AZITHROMYCIN 250 MG TABLET PO SCH (09:00)
== END 2021-09-16 12:50 | disposition home or self-care (01) | DRG 831 ==
LOC: ED 16:56 → OBS 21:01
PROVIDERS: ADMIT Obstetrics & Gynecology; ATTEND Obstetrics & Gynecology
DX: O99.512 Diseases of the respiratory system complicating pregnancy, second trimester (principal); J18.9 Pneumonia, unspecified organism; O26.892 Other specified pregnancy related conditions, second trimester; R09.02 Hypoxemia; R10.2 Pelvic and perineal pain; O36.8320 Maternal care for abnormalities of the fetal heart rate or rhythm, second trimester, not applicable or unspecified; Z20.822 Contact with and (suspected) exposure to COVID-19; Z3A.26 26 weeks gestation of pregnancy; Z82.49 Family history of ischemic heart disease and other diseases of the circulatory system
CPT/HCPCS: 0202U; 36415; 71045; 80053; 81001; 83690; 85025; 96374; 99284; 99285; A9270; J7120

== ENCOUNTER 2022-08-12 11:45 | Emergency (ER) | payer OTHER ==
--- NOTE | 2022-08-12 12:18 | ED Physician Documentation ---
PD HPI MHE - Stated complaint Stated Complaint: MHE - Chief complaint Chief Complaint: MHE - History obtained from History obtained from: Patient - History of Present Illness Primary symptom: Suicidal ideation - Additional information Additional information: This is a 26-year-old female with a past medical history of depression who presents with concerns for suicidal ideation. The patient has been thinking quite a bit lately about taking the medication she has available to her including Zoloft, Adderall, and Tylenol. She states that her has been t aking the meds out of her hands because she keeps Grabbing her medication and thinking about overdosing on them. She has Not Overdose yet however. The patient states frequent thoughts of suicide in identifies work stressors as the source of her unhappiness. She works in the [employer] and States that work is very stressful. She also has an 8-month-old infant at home along with her , and is feeling overwhelmed. She has not been involved in inpatient mental health treatment in the past. She denies any drug or alcohol use, no other concerns today. She states that she is otherwise well. Review of Systems Ten Systems: 10 systems reviewed and negative (Except as per HPI) PD PAST MEDICAL HISTORY - Past Medical History Past Medical History: Yes Cardiovascular: None Respiratory: None Neuro: None Endocrine/Autoimmune: None GI: None [employer] ASSISTANT: None : None HEENT: None Psych: Depression, Anxiety Musculoskeletal: None Derm: None - Past Surgical History Past Surgical History: No - Present Medications Home Medications: Ambulatory Orders Medication Instructions Recorded Confirmed Sertraline HCl 100 mg PO DAILY 09/15/21 08/12/22 - Allergies Allergies/Adverse Reactions: Allergies Allergy/AdvReac Type Severity Reaction Status Date / Time shellfish derived Allergy Severe Hives Verified 08/12/22 12:00 avocado Allergy Intermediate Cramps Verified 08/12/22 12:00 banana Allergy Intermediate Cramps Verified 08/12/22 12:00 lactose Allergy Cramps Verified 08/12/22 12:00 - Social History Does the pt smoke?: No Smoking Status: Never smoker Does the pt drink ETOH?: No Does the pt have substance abuse?: No - Immunizations Immunizations are current?: Yes - POLST Patient has POLST: No PD ED PE NORMAL - Vitals Vital signs reviewed: Yes - General General: Alert and oriented X 3, No acute distress, Well developed/nourished - HEENT HEENT: Atraumatic, Pharynx benign - Cardiac Cardiac: RRR, No murmur - Respiratory Respiratory: No respiratory distress, Clear bilaterally - Abdomen Abdomen: Normal bowel sounds, Soft - Derm Derm: Normal color, No rash - Neuro Neuro: Alert and oriented X 3 Eye Opening: Spontaneous Motor: Obeys Commands Verbal: Oriented GCS Score: 15 - Psych Psych: Other (Tearful, flat) Results - Vitals Vitals: Vital Signs - 24 hr 08/12/22 11:52 Temperature 36.8 C Heart Rate 78 Respiratory 20 Rate Blood Pressure 124/78 O2 Saturation 98 Oxygen O2 Source Room air PD MEDICAL DECISION MAKING - ED course Complexity details: reviewed results, d/w patient ED course: This is a 26-year-old female who presents with suicidal ideation. The patient has thought about taking her pills that she has available to her. Her has stopped her on several occasions recently. We will medically clear the patient she has no underlying chronic diseases, and is otherwise well-appearing right now, and asked that social work or telepsych see this patient to discuss neck steps. Will monitor the patient closely in the ER on suicide precautions.
[2022-08-12 12:20] LABS: BASOPHILS # (AUTO) 0.1 10^3/uL (0.0-0.1); BASOPHILS % (AUTO) 0.7 %; EOSINOPHILS # (AUTO) 0.3 10^3/uL (0.0-0.7); EOSINOPHILS % (AUTO) 2.8 %; HCT - HEMATOCRIT 41.1 % (37.0-47.0); LYMPHOCYTES # (AUTO) 1.5 10^3/uL (1.5-3.5); LYMPHOCYTES % (AUTO) 16.8 %; MEAN CORPUSCULAR HEMOGLOBIN 27.5 pg (27.0-31.0); MEAN CORPUSCULAR HGB CONC 31.6 g/dL (32.0-36.0); MEAN CORPUSCULAR VOLUME 87.1 fL (81.0-99.0); MEAN PLATELET VOLUME 8.7 fL (7.9-10.8); MONOCYTES # (AUTO) 0.5 10^3/uL (0.0-1.0); MONOCYTES % (AUTO) 5.2 %; NEUTROPHILS # (AUTO) 6.6 10^3/uL (1.5-6.6); NEUTROPHILS % (AUTO) 74.3 %; PLT - PLATELET COUNT 293 10^3/uL (130-450); RED BLOOD COUNT 4.72 10^6/uL (4.20-5.40); RED CELL DISTRIBUTION WIDTH 14.1 % (12.0-15.0); WHITE BLOOD COUNT 8.9 x10^3/uL (4.8-10.8)
[2022-08-12 12:39] LABS: ACETAMINOPHEN < 10 ug/mL (10-30); ALBUMIN 3.6 g/dL (3.2-5.5); ALBUMIN/GLOBULIN RATIO 0.9 (1.0-2.2); ALKALINE PHOSPHATASE 50 IU/L (42-121); ALT ALANINE AMINOTRANSFERASE 13 IU/L (10-60); AST ASPARTATE AMINOTRANSFERASE 16 IU/L (10-42); BILIRUBIN,TOTAL 0.5 mg/dL (0.2-1.0); BUN - BLOOD UREA NITROGEN 11 mg/dL (6-20); CALCIUM 9.1 mg/dL (8.5-10.3); CARBON DIOXIDE - CO2 22 mmol/L (21-32); CHLORIDE 104 mmol/L (101-111); CREATININE 0.9 mg/dL (0.4-1.0); ETOH - ETHANOL < 5.0 mg/dL; GFR - MDRD 76 (>89); GLUCOSE 99 mg/dL (70-100); LIPASE 32 U/L (22-51); POTASSIUM 4.2 mmol/L (3.5-5.0); SALICYLATE < 6.0 mg/dL; SODIUM 136 mmol/L (135-145); TOTAL PROTEIN 7.8 g/dL (6.7-8.2)
[2022-08-12 13:20] LABS: MUDS CUTOFF CONCENTRATIONS CUTOFF CONC BELOW:
[2022-08-12 13:23] LABS: BILIRUBIN,URINE NEGATIVE (NEGATIVE); GLUCOSE, URINE (UA) NEGATIVE (NEGATIVE); KETONES,URINE (UA) NEGATIVE (NEGATIVE); LEUKOCYTE ESTERASE, URINE TRACE (NEGATIVE); NITRITE,URINE NEGATIVE (NEGATIVE); OCCULT BLOOD,URINE NEGATIVE (NEGATIVE); PH,URINE 6.5 PH (5.0-7.5); PROTEIN,URINE NEGATIVE (NEGATIVE); UROBILINOGEN,URINE 0.2 (NORMAL) E.U./dL (NORMAL)
[2022-08-12 13:25] LABS: CLARITY,URINE CLEAR (CLEAR); HCG UR QUAL NEGATIVE
[2022-08-12 13:42] LABS: BACTERIA,URINE Many /HPF (None Seen); RBC,URINE 0-5 /HPF (0-5); SQUAMOUS EPITHELIAL CELL,UR MANY Squamous (<= Few)
[2022-08-12 13:43] LABS: AMPHETAMINE SCREEN,URINE NEGATIVE (NEGATIVE); BARBITURATE SCREEN,UR NEGATIVE (NEGATIVE); BENZODIAZEPINES SCREEN, URINE NEGATIVE (NEGATIVE); COCAINE SCREEN URINE NEGATIVE (NEGATIVE); METHADONE SCREEN, URINE NEGATIVE (NEGATIVE); METHAMPHETAMINES SCREEN, URINE NEGATIVE (NEGATIVE); OPIATE SCREEN, URINE NEGATIVE (NEGATIVE); OXYCODONE SCREEN, URINE NEGATIVE (NEGATIVE); PROPOXYPHENE SCREEN, URINE NEGATIVE (NEGATIVE); THC CANNABINOID SCREEN, URINE NEGATIVE (NEGATIVE); TRICYCLIC ANTIDEPRESSANT,URINE NEGATIVE (NEGATIVE)
[2022-08-13 01:02] VITALS: BP 111/76
== END 2022-08-13 01:50 ==
LOC: EDUNIT# → ED 11:45
DX: R45.851 Suicidal ideations (principal); Z20.822 Contact with and (suspected) exposure to COVID-19
CPT/HCPCS: 36415; 80053; 80306; 80307; 80320; 80329; 81001; 81003; 81025; 83690; 84443; 85025; 87086; 99281; 99285

== ENCOUNTER → 2022-08-12 | Outpatient (CLI) | payer OTHER | END | disposition critical access hospital (66) | LOC: EMS 10:07 | DX: R45.851 Suicidal ideations (principal) | CPT/HCPCS: A0425; A0429 ==

== ENCOUNTER 2023-01-17 15:12 | Emergency (ER) | payer OTHER ==
[2023-01-17 15:44] LABS: MUDS CUTOFF CONCENTRATIONS CUTOFF CONC BELOW:
[2023-01-17 15:46] LABS: BASOPHILS # (AUTO) 0.1 10^3/uL (0.0-0.1); BASOPHILS % (AUTO) 0.8 %; EOSINOPHILS # (AUTO) 0.2 10^3/uL (0.0-0.7); EOSINOPHILS % (AUTO) 1.9 %; HCT - HEMATOCRIT 42.1 % (37.0-47.0); HGB - HEMOGLOBIN 13.7 g/dL (12.0-16.0); LYMPHOCYTES # (AUTO) 2.1 10^3/uL (1.5-3.5); MEAN CORPUSCULAR HEMOGLOBIN 27.7 pg (27.0-31.0); MEAN CORPUSCULAR HGB CONC 32.5 g/dL (32.0-36.0); MEAN CORPUSCULAR VOLUME 85.2 fL (81.0-99.0); MEAN PLATELET VOLUME 8.8 fL (7.9-10.8); MONOCYTES # (AUTO) 0.6 10^3/uL (0.0-1.0); MONOCYTES % (AUTO) 5.5 %; NEUTROPHILS # (AUTO) 7.1 10^3/uL (1.5-6.6); NEUTROPHILS % (AUTO) 70.4 %; PLT - PLATELET COUNT 339 10^3/uL (130-450); RED BLOOD COUNT 4.94 10^6/uL (4.20-5.40); RED CELL DISTRIBUTION WIDTH 14.2 % (12.0-15.0); WHITE BLOOD COUNT 10.1 x10^3/uL (4.8-10.8)
[2023-01-17 15:46] LABS: BILIRUBIN,URINE NEGATIVE (NEGATIVE); GLUCOSE, URINE (UA) NEGATIVE (NEGATIVE); KETONES,URINE (UA) NEGATIVE (NEGATIVE); LEUKOCYTE ESTERASE, URINE SMALL (NEGATIVE); NITRITE,URINE NEGATIVE (NEGATIVE); OCCULT BLOOD,URINE NEGATIVE (NEGATIVE); PH,URINE 6.5 PH (5.0-7.5); PROTEIN,URINE NEGATIVE (NEGATIVE); UROBILINOGEN,URINE 0.2 (NORMAL) E.U./dL (NORMAL)
[2023-01-17 15:47] LABS: CLARITY,URINE HAZY (CLEAR)
[2023-01-17 15:49] LABS: HCG UR QUAL NEGATIVE
[2023-01-17 15:54] LABS: ACETAMINOPHEN < 10 ug/mL (10-30); ALBUMIN 4.2 g/dL (3.2-5.5); ALKALINE PHOSPHATASE 51 IU/L (42-121); ALT ALANINE AMINOTRANSFERASE 14 IU/L (10-60); AST ASPARTATE AMINOTRANSFERASE 19 IU/L (10-42); BILIRUBIN,TOTAL 0.7 mg/dL (0.2-1.0); BUN - BLOOD UREA NITROGEN 11 mg/dL (6-20); CALCIUM 9.1 mg/dL (8.5-10.3); CARBON DIOXIDE - CO2 23 mmol/L (21-32); CHLORIDE 101 mmol/L (101-111); CREATININE 0.9 mg/dL (0.4-1.0); ETOH - ETHANOL < 5.0 mg/dL; GFR - MDRD 76 (>89); GLUCOSE 92 mg/dL (70-100); LIPASE 36 U/L (22-51); POTASSIUM 3.5 mmol/L (3.5-5.0); SALICYLATE < 6.0 mg/dL; SODIUM 135 mmol/L (135-145); TOTAL PROTEIN 8.5 g/dL (6.7-8.2)
[2023-01-17 15:57] LABS: BACTERIA,URINE Moderate /HPF (None Seen); RBC,URINE 0-5 /HPF (0-5); SQUAMOUS EPITHELIAL CELL,UR MOD Squamous (<= Few)
[2023-01-17 15:58] LABS: AMPHETAMINE SCREEN,URINE POSITIVE (NEGATIVE); BARBITURATE SCREEN,UR NEGATIVE (NEGATIVE); BENZODIAZEPINES SCREEN, URINE NEGATIVE (NEGATIVE); COCAINE SCREEN URINE NEGATIVE (NEGATIVE); METHADONE SCREEN, URINE NEGATIVE (NEGATIVE); METHAMPHETAMINES SCREEN, URINE NEGATIVE (NEGATIVE); OPIATE SCREEN, URINE NEGATIVE (NEGATIVE); OXYCODONE SCREEN, URINE NEGATIVE (NEGATIVE); PROPOXYPHENE SCREEN, URINE NEGATIVE (NEGATIVE); THC CANNABINOID SCREEN, URINE NEGATIVE (NEGATIVE); TRICYCLIC ANTIDEPRESSANT,URINE NEGATIVE (NEGATIVE)
--- NOTE | 2023-01-17 17:58 | ED Physician Documentation ---
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 The patient was reportedly at home having a panic attack. She states that she was sad and angry and expressed to her command that she was fearful of being alone. She never had suicidal thoughts or thoughts of harm to others. Commander brings her to the ER requesting psychiatric evaluation. The patient states to me that she has been feeling sad, angry and guilty about having her daughter who is about 1-year-old. She states that prior to having her daughter she had a good career trajectory with the [employer] but since becoming a mother has been derailed. She currently takes sertraline, BuSpar as well as Adderall for ADHD. [place] Patient states to me that she has no thoughts of harm to herself or others. She does not wish to be hospitalized. She states she felt that she was simply overwhelmed. She Feels that this was blown out of proportion. Patient is requesting to be discharged home states that she will call her psychiatrist to arrange follow-up for next week. Denies having guns or weapons at the home as she does not believe in them. Past psychiatric history includes anxiety/depression as well as depression. She has no history of previous suicidal attempts. No history of previous psychiatric hospitalizations. 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 : None HEENT: None Psych: Depression, Anxiety, ADD/ADHD Musculoskeletal: None Derm: None - Past Surgical History Past Surgical History: No - Present Medications Home Medications: Ambulatory Orders Medication Instructions Recorded Confirmed Sertraline HCl 100 mg PO DAILY 09/15/21 08/12/22 - Allergies Allergies/Adverse Reactions: Allergies Allergy/AdvReac Type Severity Reaction Status Date / Time shellfish derived Allergy Severe Hives Verified 01/17/23 15:25 avocado Allergy Intermediate Cramps Verified 01/17/23 15:25 banana Allergy Intermediate Cramps Verified 01/17/23 15:25 lactose Allergy Cramps Verified 01/17/23 15:25 - Social History Does the pt smoke?: No Smoking Status: Never smoker Does the pt drink ETOH?: No Does the pt have substance abuse?: No - Immunizations Immunizations are current?: Yes - POLST Patient has POLST: No PD ED PE NORMAL - General General: Alert and oriented X 3, No acute distress - HEENT HEENT: PERRL - Neck Neck: Supple, no meningeal sign - Cardiac Cardiac: RRR, No murmur - Respiratory Respiratory: No respiratory distress, Clear bilaterally - Abdomen Abdomen: Normal bowel sounds, Soft, Non tender, Non distended - Back Back: No CVA TTP, No spinal TTP - Derm Derm: Normal color, Warm and dry, No rash - Neuro Neuro: Alert and oriented X 3, 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 No audio or visual hallucinations. No thoughts of self-harm. Patient appears to have good insight. Normal mood. Normal affect) Results - Vitals Vitals: Vital Signs - 24 hr 01/17/23 15:18 Temperature 37.4 C Heart Rate 110 H Respiratory 16 Rate Blood Pressure 130/76 O2 Saturation 98 Oxygen O2 Source Room air - Labs Labs: Laboratory Tests 01/17/23 01/17/23 01/17/23 15:34 15:34 15:34 WBC 10.1 RBC 4.94 Hgb 13.7 Hct 42.1 MCV 85.2 MCH 27.7 MCHC 32.5 RDW 14.2 Plt Count 339 MPV 8.8 Neut # (Auto) 7.1 H Lymph # (Auto) 2.1 Mineral # (Auto) 0.6 Eos # (Auto) 0.2 Baso # (Auto) 0.1 Absolute Nucleated RBC 0.00 Nucleated RBC % 0.0 Sodium 135 Potassium 3.5 Chloride 101 Carbon Dioxide 23 Anion Gap 11.0 BUN 11 Creatinine 0.9 Estimated GFR (MDRD) 76 L Glucose 92 Calcium 9.1 Total Bilirubin 0.7 AST 19 ALT 14 Alkaline Phosphatase 51 Total Protein 8.5 H Albumin 4.2 Globulin 4.3 H Albumin/Globulin Ratio 1.0 Lipase 36 TSH 1.50 Urine Color Urine Clarity Urine pH Ur Specific Mobile Urine Protein Urine Glucose (UA) Urine Ketones Urine Occult Blood Urine Nitrite Urine Bilirubin Urine Urobilinogen Ur Leukocyte Esterase Urine RBC Urine WBC Ur Squamous Epith Cells Urine Bacteria Ur Microscopic Review Urine Culture Comments Urine HCG, Qual Salicylates < 6.0 Urine Opiates Screen Ur Oxycodone Screen Urine Methadone Screen Ur Propoxyphene Screen Acetaminophen < 10 L Ur Barbiturates Screen Ur Tricyclics Screen Ur Phencyclidine Scrn Ur Amphetamine Screen U Methamphetamines Scrn U Benzodiazepines Scrn Urine Cocaine Screen U Cannabinoids Screen Ethyl Alcohol < 5.0 01/17/23 15:43 WBC RBC Hgb Hct MCV MCH MCHC RDW Plt Count MPV Neut # (Auto) Lymph # (Auto) Mineral # (Auto) Eos # (Auto) Baso # (Auto) Absolute Nucleated RBC Nucleated RBC % Sodium Potassium Chloride Carbon Dioxide Anion Gap BUN Creatinine Estimated GFR (MDRD) Glucose Calcium Total Bilirubin AST ALT Alkaline Phosphatase Total Protein Albumin Globulin Albumin/Globulin Ratio Lipase TSH Urine Color YELLOW Urine Clarity HAZY Urine pH 6.5 Ur Specific Mobile 1.015 Urine Protein NEGATIVE Urine Glucose (UA) NEGATIVE Urine Ketones NEGATIVE Urine Occult Blood NEGATIVE Urine Nitrite NEGATIVE Urine Bilirubin NEGATIVE Urine Urobilinogen 0.2 (NORMAL) Ur Leukocyte Esterase SMALL H Urine RBC 0-5 Urine WBC 4-5 Ur Squamous Epith Cells MOD Squamous H Urine Bacteria Moderate H Ur Microscopic Review INDICATED Urine Culture Comments NOT INDICATED Urine HCG, Qual NEGATIVE Salicylates Urine Opiates Screen NEGATIVE Ur Oxycodone Screen NEGATIVE Urine Methadone Screen NEGATIVE Ur Propoxyphene Screen NEGATIVE Acetaminophen Ur Barbiturates Screen NEGATIVE Ur Tricyclics Screen NEGATIVE Ur Phencyclidine Scrn NEGATIVE Ur Amphetamine Screen POSITIVE H U Methamphetamines Scrn NEGATIVE U Benzodiazepines Scrn NEGATIVE Urine Cocaine Screen NEGATIVE U Cannabinoids Screen NEGATIVE Ethyl Alcohol PD Medical Decision Making - ED course Complexity details: reviewed results, re-evaluated patient, considered differential, d/w patient ED course: 27-year-old female who is active [employer] was brought to the emergency department by her command who are seeking a mental health evaluation. She began to have a panic attack at home because she was feeling guilty about derailing her [employer] career after becoming a mother. However at no point did she ever verbalized to anyone that she wanted to harm herself. She is quite clear with me that she has no thoughts of self-harm and has never harmed in the past. She does not desire psychiatric hospitalization. Here in the emergency department we did obtain the usual routine labs for psychiatric evaluation and no acute findings were seen. She is amphetamine positive not unexpected given the history of receiving Adderall. I spent time with the patient at the bedside. She would simply like to be discharged home. She feels that this was blown out of proportion. [place] follow-up with and has no access to weapons. She states she would never harm herself because even though she has derailed her [employer] career she enjoys and wants to be a mother. With the patient's permission her [employer] command was brought back to the bedside. We discussed this ED visit. We discussed that the patient Had never expressed any suicidal thoughts and easily contracted for safety. In addition she did not want to be voluntarily hospitalized. I do not see any criteria by which to hold her involuntarily. The command is going to work with the patient in order to get her seen at mental health/her psychiatrist within the next 48 hours. Patient appears grateful and she will be discharged home. She is advised to take her usual medications. The usual emergent return precautions were discussed. Departure - Departure Disposition: 01 Home, Self Care Clinical Impression: Panic attack, Anxiety and depression Condition: Stable Record reviewed to determine appropriate education?: Yes Instructions: ED Stress React Comments: Is sound like you had a panic attack at home. You felt overwhelmed and began thrashing things around in your house. You have expressed to me that you feel sad, angry and guilty about derailing your [employer] career in order to be a mother. However you are very clear with us that you do not wish to harm yourself or anybody else. Panic attacks can feel overwhelming. I encourage you to continue to follow closely with [employer] [facility] medical/psychiatry in order to discuss this ED visit. However clinically I do not have any criteria by which you could be kept against your will. You can continue to take your sertraline, BuSpar and Adderall at home. It is okay to reach out for help. Is okay to be sad and angry. If you ever feel [id number] or have any thoughts of self-harm please do not hesitate to reach out to your command, your family or return immediately to the emergency department
[2023-01-17 18:10] VITALS: BP 124/88
== END 2023-01-17 18:12 | disposition home or self-care (01) ==
LOC: ED 15:12
DX: F41.0 Panic disorder [episodic paroxysmal anxiety] (principal); F41.8 Other specified anxiety disorders
CPT/HCPCS: 36415; 80053; 80306; 80307; 80320; 80329; 81001; 81003; 81025; 83690; 84443; 85025; 87086; 99282; 99283